=== PATIENT | male | born 1965 | race African-American/Black ===

== ENCOUNTER 2017-07-27 15:24 | Emergency (ER) | payer OTHER | END 2017-07-27 18:54 | disposition home or self-care (01) | LOC: D.ER 15:24 | DX: S16.1XXA Strain of muscle, fascia and tendon at neck level, initial encounter (principal); V43.52XA Car driver injured in collision with other type car in traffic accident, initial encounter; Y93.89 Activity, other specified; Y92.410 Unspecified street and highway as the place of occurrence of the external cause; S40.012A Contusion of left shoulder, initial encounter; S70.01XA Contusion of right hip, initial encounter; R07.9 Chest pain, unspecified ==

== ENCOUNTER 2018-05-16 22:40 | Emergency (ER) | payer MEDICAID ==
[~2018-05-16] VITALS: Ht 167.6 cm; Wt 110.0 kg
[2018-05-16 23:00] VITALS: Ht 167.6 cm; Wt 110.0 kg
[2018-05-16] MEDS ORDERED: EPITOL200 MG PO (23:03)
[2018-05-16] MEDS ORDERED: HYDROCHLOROTH12.5 M1 (23:03)
[2018-05-16] MEDS ORDERED: LOTREL 5/10 MG1 CAP (23:04)
[2018-05-16] MEDS ORDERED: MOBIC7.5 MG (23:04)
[2018-05-16] MEDS ORDERED: OMEPRAZOLE40 MG (23:04)
[2018-05-16] MEDS ORDERED: PREDNISONE20 MG (23:05)
[2018-05-16] MEDS ORDERED: DICLOFENAC SODI50 MG PO (23:55)
[2018-05-17 00:18] VITALS: BP 185/93
== END 2018-05-17 00:18 | disposition home or self-care (01) ==
LOC: D.ER 22:40
DX: S46.911A Strain of unspecified muscle, fascia and tendon at shoulder and upper arm level, right arm, initial encounter (principal); X58.XXXA Exposure to other specified factors, initial encounter; Y93.89 Activity, other specified; Y92.019 Unspecified place in single-family (private) house as the place of occurrence of the external cause; I10 Essential (primary) hypertension; K21.9 Gastro-esophageal reflux disease without esophagitis